=== PATIENT | male | born 1995 | race Caucasian/White ===

== ENCOUNTER 2017-11-20 12:03 | Emergency (ER) | payer MEDICAID ==
[~2017-11-20] VITALS: Ht 154.9 cm; Wt 123.0 kg
[~2017-11-20 12:03] MED LIST: ATOR20TA PO; GLUCOMETER; LEVO500T2 PO; LISI-604 PO; METF500T4 PO; NYST1POW11 MC; PRAN1 PO; [UNRECOGNIZED DRUG - OTHER]
[2017-11-20] MEDS ORDERED: BACITRACIN ZINC OINT UDPKT TOP ONE (12:30)
[2017-11-20] MEDS ORDERED: LIDOCAINE HCL 1% 20ML VIAL (Pyxis) INJ MC ONE (12:30)
[2017-11-20] MEDS ORDERED: KETOROLAC 60MG/2ML VIAL IM ONE (15:15)
[2017-11-20] MEDS ORDERED: SODIUM CHLORIDE 0.9% 1,000 ML IV ONE (16:14)
[2017-11-20 19:07] VITALS: BP 142/85
== END 2017-11-20 19:01 | disposition home or self-care (01) ==
LOC: ER 15:16
DX: L02.31 Cutaneous abscess of buttock (principal); I10 Essential (primary) hypertension; E78.00 Pure hypercholesterolemia, unspecified; E11.9 Type 2 diabetes mellitus without complications; Z79.84 Long term (current) use of oral hypoglycemic drugs; Z98.890 Other specified postprocedural states; Z91.012 Allergy to eggs
CPT/HCPCS: 96372; 99285; J1885; J3490; J7030

== ENCOUNTER 2020-03-19 02:07 | Emergency (ER) | payer MEDICAID, OTHER ==
[~2020-03-19] VITALS: Ht 162.6 cm; Wt 116.0 kg
[~2020-03-19 02:07] MED LIST changes: +METF-414 PO; -METF500T4 PO
[2020-03-19] MEDS ORDERED: LIDOCAINE HCL/EPINEPHRINE 1%-EPI 1:100,000 20 ML VIAL INFIL ONE (02:30)
[2020-03-19 03:47] VITALS: BP 152/98
== END 2020-03-19 03:48 | disposition home or self-care (01) ==
LOC: ER 02:07
DX: L02.31 Cutaneous abscess of buttock (principal); E11.9 Type 2 diabetes mellitus without complications; E78.00 Pure hypercholesterolemia, unspecified; I10 Essential (primary) hypertension; Z91.012 Allergy to eggs
CPT/HCPCS: 10060; 99282; J3490